=== PATIENT | male | born 2000 | race Caucasian/White ===

== ENCOUNTER → 2023-12-18 14:53 | Outpatient (REF) | payer BC, SELFPAY | LOC: HWRAD 14:53 | PROVIDERS: ATTENDING PHYSICIAN Specialist; FAMILY PHYSICIAN Family Medicine | DX: N20.0 Calculus of kidney (principal) | CPT/HCPCS: 74018; 76775 ==

== ENCOUNTER → 2025-01-24 13:34 | Outpatient (REF) | payer OTHER, SELFPAY | LOC: RAD 13:34 | PROVIDERS: ATTENDING PHYSICIAN Specialist; FAMILY PHYSICIAN Family Medicine | DX: N20.0 Calculus of kidney (principal) | CPT/HCPCS: 74018 ==

== ENCOUNTER 2025-03-10 06:23 | Day surgery (SDC) | payer OTHER, SELFPAY ==
[2025-03-10] VITALS (10 sets, daily range): BP systolic 105–146; BP diastolic 68–88; BMI 22.3
[2025-03-10] MEDS: NORMOSOL-R/PLASMALYTE-A 1000 IV (07:50)
== END 2025-03-10 10:50 | disposition home or self-care (01) ==
LOC: SDS 06:23
PROVIDERS: ATTENDING PHYSICIAN Specialist
DX: N20.0 Calculus of kidney (principal)
CPT/HCPCS: 50590

== ENCOUNTER → 2025-05-09 14:33 | Outpatient (REF) | payer OTHER, SELFPAY | LOC: RAD 14:33 | PROVIDERS: ATTENDING PHYSICIAN Specialist; FAMILY PHYSICIAN Family Medicine | DX: N20.0 Calculus of kidney (principal) | CPT/HCPCS: 74018 ==